=== PATIENT | male | born 1985 | race Caucasian/White ===

== ENCOUNTER 2018-02-15 14:33 | Emergency (ER) | payer OTHER ==
[~2018-02-15] VITALS: Ht 185.4 cm; Wt 86.2 kg
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
[2018-02-15 14:59] VITALS: BP 132/76
--- NOTE | 2018-02-15 15:00 | NUR ---
Patient discharged to home in stable condition. Written and verbal after care instructions given. Patient verbalizes understanding of instruction.
== END 2018-02-15 15:00 | disposition home or self-care (01) ==
LOC: ER 14:35
DX: M25.512 Pain in left shoulder (principal); M54.2 Cervicalgia; G89.29 Other chronic pain; F17.200 Nicotine dependence, unspecified, uncomplicated
CPT/HCPCS: 99283; A4606; Z7610